=== PATIENT | female | born 1980 | race Caucasian/White ===

== ENCOUNTER 2021-02-12 16:54 | Emergency (ER) | payer OTHER ==
[~2021-02-12] VITALS: Ht 157.5 cm; Wt 59.1 kg
[2021-02-12] MEDS ORDERED: IBUPROFEN 600 MG TABLET PO ONE (18:00)
[2021-02-12 20:21] VITALS: BP 115/68
== END 2021-02-12 20:24 | disposition home or self-care (01) ==
LOC: EMS 16:59
DX: S71.132A Puncture wound without foreign body, left thigh, initial encounter (principal); S31.829A Unspecified open wound of left buttock, initial encounter; S00.81XA Abrasion of other part of head, initial encounter; Z88.0 Allergy status to penicillin; V49.9XXA Car occupant (driver) (passenger) injured in unspecified traffic accident, initial encounter; Y93.89 Activity, other specified; Y92.89 Other specified places as the place of occurrence of the external cause; Y99.8 Other external cause status
CPT/HCPCS: 73552; 99283

== ENCOUNTER 2021-05-19 18:47 | Emergency (ER) | payer OTHER ==
[~2021-05-19] VITALS: Ht 152.4 cm; Wt 52.3 kg
[2021-05-19 23:47] VITALS: BP 124/66
== END 2021-05-20 00:09 | disposition home or self-care (01) ==
LOC: EMS 18:49
DX: T18.9XXA Foreign body of alimentary tract, part unspecified, initial encounter (principal); J02.9 Acute pharyngitis, unspecified; Z88.0 Allergy status to penicillin; X58.XXXA Exposure to other specified factors, initial encounter; Y93.89 Activity, other specified; Y92.89 Other specified places as the place of occurrence of the external cause; Y99.8 Other external cause status
CPT/HCPCS: 70360; 71045; 74018; 74019; 99285

== ENCOUNTER 2021-06-07 15:41 | Emergency (ER) | payer OTHER ==
[~2021-06-07] VITALS: Ht 152.4 cm; Wt 50.0 kg
[2021-06-07 18:31] LABS: COVID AG,FIA SOURCE NASOPHARYNGEAL
[2021-06-07 18:53] VITALS: BP 111/64
[2021-06-07 18:54] LABS: INFLUENZA TYPE A NEGATIVE FOR TYPE A (NEGATIVE); INFLUENZA TYPE B NEGATIVE FOR TYPE B (NEGATIVE)
== END 2021-06-07 20:06 | disposition home or self-care (01) ==
LOC: EDUNIT# 15:41 → EMS 15:43
DX: U07.1 COVID-19 (principal)
CPT/HCPCS: 87426; 87804; 99283; U0003

== ENCOUNTER 2022-02-28 16:25 | Emergency (ER) | payer OTHER ==
[~2022-02-28] VITALS: Ht 152.4 cm; Wt 56.8 kg
[2022-02-28 16:29] VITALS: BP 99/59
[2022-02-28] MEDS ORDERED: ACETAMINOPHEN 500 MG TABLET PO ONE (17:45)
[2022-02-28] MEDS ORDERED: KETOROLAC TROMETHAMINE 30 MG/ML VIAL IVP ONE (17:45)
[2022-02-28] MEDS ORDERED: SODIUM CHLORIDE 0.9% 1,000 ML IV ONE (17:45)
[2022-02-28] MEDS ORDERED: DIPHENOXYLATE/ATROP 2.5-0.025 MG TABLET PO ONE (17:45)
[2022-02-28] MEDS ORDERED: ONDANSETRON HCL 4 MG/2 ML VIAL IVP ONE (17:45)
[2022-02-28 17:56] LABS: BASOPHILS % (AUTO) 0.3 % (0.0-2.0); COVID AG,FIA SOURCE NASOPHARYNGEAL; EOSINOPHILS % (AUTO) 0.6 % (1.0-6.0); HEMATOCRIT 37.9 % (36-46); HEMOGLOBIN 12.9 g/dL (12.0-16.0); LYMPHOCYTES # (AUTO) 1.7 K/uL (1.0-4.8); MEAN CORPUSCULAR HEMOGLOBIN 28.9 pg (26.0-34.0); MEAN CORPUSCULAR HGB CONC 33.9 G/dL (31.0-37.0); MEAN CORPUSCULAR VOLUME 85 fL (80-100); MONOCYTES # (AUTO) 0.7 K/uL (0.1-1.0); MONOCYTES % (AUTO) 5.5 % (2.0-9.0); NEUTROPHILS # (AUTO) 9.5 K/uL (1.8-7.7); NEUTROPHILS % (AUTO) 79.6 % (40.0-70.0); PLATELET COUNT (AUTO) 179 K/uL (150-450); RED BLOOD CELL COUNT(AUTO) 4.45 MIL/uL (4.00-5.20); RED CELL DISTRIBUTION WIDTH 13.2 % (11.5-14.5)
[2022-02-28 18:13] LABS: ANION GAP 6 mmol/L (8-16); CALCIUM, TOTAL 8.4 mg/dL (8.8-10.5); CARBON DIOXIDE 31 mmol/L (22-29); CHLORIDE 104 mmol/L (98-107); CREATININE 0.71 mg/dL (0.60-1.30); GLUCOSE,RANDOM 91 mg/dL (70-110); SODIUM SERUM 141 mmol/L (136-145); UREA NITROGEN, BLOOD 11 mg/dL (7-18)
[2022-02-28 18:17] LABS: GLOMERULAR FILTR. RATE CALC > 60 mL/min (>60)
[2022-02-28 18:20] LABS: ALANINE AMINOTRANSFERASE 16 U/L (12-78); ALBUMIN 3.9 g/dL (3.4-5.0); ALKALINE PHOSPHATASE 44 U/L (46-116); ASPARTATE AMINOTRANSFERASE 14 U/L (15-37); BILIRUBIN,TOTAL 1.9 mg/dL (0.1-1.0); LIPASE 96 U/L (73-393); TOTAL PROTEIN, SERUM 7.1 g/dL (6.4-8.2)
[2022-02-28 18:23] LABS: INFLUENZA TYPE A NEGATIVE FOR TYPE A (NEGATIVE); INFLUENZA TYPE B NEGATIVE FOR TYPE B (NEGATIVE)
[2022-02-28] MEDS ORDERED: DIPH-654 PO (18:54)
[2022-02-28] MEDS ORDERED: ACET-66 PO (18:54)
[2022-02-28] MEDS ORDERED: ONDA-104 PO (18:54)
== END 2022-02-28 19:15 | disposition home or self-care (01) ==
LOC: EMS 16:27
DX: K52.9 Noninfective gastroenteritis and colitis, unspecified (principal); B34.9 Viral infection, unspecified; R10.9 Unspecified abdominal pain; Z20.822 Contact with and (suspected) exposure to COVID-19; Z88.0 Allergy status to penicillin
CPT/HCPCS: 99284; 96374; 96361; 96375; 87426; 80053; 83690; 84703; 85025; 87804; 36415; J1885; J2405; J7030

== ENCOUNTER 2024-10-13 20:31 | Emergency (ER) | payer OTHER ==
[~2024-10-13] VITALS: Ht 157.5 cm; Wt 61.4 kg
[2024-10-13 20:31] VITALS: TEMP 98.4
[~2024-10-13 20:31] MED LIST: ACET-66 PO; DIPH-1130 PO; ONDA-104 PO
[2024-10-13 21:13] LABS: BASOPHILS % (AUTO) 0.6 % (0.0-2.0); EOSINOPHILS % (AUTO) 2.8 % (1.0-6.0); HEMATOCRIT 36.2 % (36-46); HEMOGLOBIN 12.4 g/dL (12.0-16.0); LYMPHOCYTES # (AUTO) 2.8 K/uL (1.0-4.8); LYMPHOCYTES % (AUTO) 37.1 % (22.0-44.0); MEAN CORPUSCULAR HEMOGLOBIN 29.4 pg (26.0-34.0); MEAN CORPUSCULAR HGB CONC 34.2 G/dL (31.0-37.0); MEAN CORPUSCULAR VOLUME 86 fL (80-100); MONOCYTES # (AUTO) 0.4 K/uL (0.1-1.0); MONOCYTES % (AUTO) 4.9 % (2.0-9.0); NEUTROPHILS # (AUTO) 4.2 K/uL (1.8-7.7); NEUTROPHILS % (AUTO) 54.6 % (40.0-70.0); PLATELET COUNT (AUTO) 251 K/uL (150-450); RED BLOOD CELL COUNT(AUTO) 4.21 MIL/uL (4.00-5.20); WHITE BLOOD COUNT (AUTO) 7.6 K/uL (4.5-11.0)
[2024-10-13 21:23] LABS: ANION GAP 7 mmol/L (8-16); CALCIUM, TOTAL 8.5 mg/dL (8.8-10.5); CARBON DIOXIDE 30 mmol/L (22-29); CHLORIDE 103 mmol/L (98-107); CREATININE 0.77 mg/dL (0.60-1.30); GLOMERULAR FILTR. RATE CALC > 60 mL/min (>60); GLUCOSE,RANDOM 115 mg/dL (70-110); POTASSIUM 4.3 mmol/L (3.5-5.1); SODIUM SERUM 140 mmol/L (136-145); UREA NITROGEN, BLOOD 7 mg/dL (7-18)
[2024-10-13 21:33] LABS: APPEARANCE,URINE CLEAR (CLEAR); BILIRUBIN,URINE NEGATIVE (NEGATIVE); COLOR,URINE LIGHT YELLOW (YELLOW); GLUCOSE, URINE (UA) NEGATIVE (NEGATIVE); KETONES,URINE NEGATIVE (NEGATIVE); LEUKOCYTE ESTERASE ,URINE NEGATIVE (NEGATIVE); NITRATE,URINE NEGATIVE (NEGATIVE); OCCULT BLOOD,URINE SMALL (NEGATIVE); PH,URINE 6.5 (5.0-8.0); PROTEIN,URINE NEGATIVE (NEGATIVE); SPECIFIC GRAVITIY, URINE 1.017 (1.003-1.030); UROBILINOGEN,URINE <=1.0 mg/dL (<=1.0)
[2024-10-13 21:39] LABS: AMYLASE 91 U/L (25-115); HCG,QUANTITATIVE < 1 mIU/mL (0-6); LIPASE 225 U/L (16-77)
[2024-10-13 21:43] LABS: BACTERIA,URINE Few /HPF (None Seen); SQUAMOUS EPITHELIAL CELL,UR Few /LPF (None Seen); WBC,URINE 0-2 /HPF (0-5)
[2024-10-13 23:55] LABS: ALBUMIN 3.5 g/dL (3.4-5.0); BILIRUBIN,DIRECT 0.1 mg/dL (0.00-0.20); BILIRUBIN,TOTAL 0.4 mg/dL (0.1-1.0); TOTAL PROTEIN, SERUM 6.5 g/dL (6.4-8.2)
[2024-10-14] MEDS: ACETAMINOPHEN 1000 MG/ISO-OSM 100 ML IV ONE (00:09)
[2024-10-14] MEDS: KETOROLAC TROMETHAMINE 30 MG/ML VIAL IVP ONE (00:10)
[2024-10-14] MEDS: ONDANSETRON HCL 4 MG/2 ML VIAL IVP ONE (00:10)
[2024-10-14] MEDS: SODIUM CHLORIDE 0.9% 1,000 ML IV ONE (00:12)
[2024-10-14 01:05] VITALS: BP 100/71; PULSE 58; RESP 18; O2SAT 100
[2024-10-14] MEDS ORDERED: SODIUM CHLORIDE 0.9% 100 ML ONE (01:14)
[2024-10-14] MEDS ORDERED: IOHEXOL 350 MG/ML 100 ML VIAL ONE (01:15)
== END 2024-10-14 02:32 | disposition home or self-care (01) ==
LOC: EMS 20:31
DX: K63.89 Other specified diseases of intestine (principal); Z88.0 Allergy status to penicillin
CPT/HCPCS: 99285; 80048; 80076; 81001; 82150; 83690; 84702; 85025; 36415; 74177; 96365; 96375; J1885; J2405; J7030; J0131; Q9967; J7050